=== PATIENT | male | born 1940 | race Caucasian/White ===

== ENCOUNTER 2024-01-16 13:47 | Outpatient (CLI) | payer MEDICARE, OTHER, SELFPAY | END 2024-01-16 13:48 | disposition home or self-care (01) | LOC: WOUND 13:51 | PROVIDERS: PCP Physician Assistant; Visit Provider Surgery | DX: I87.313 Chronic venous hypertension (idiopathic) with ulcer of bilateral lower extremity (principal); I89.0 Lymphedema, not elsewhere classified; L97.824 Non-pressure chronic ulcer of other part of left lower leg with necrosis of bone; L97.818 Non-pressure chronic ulcer of other part of right lower leg with other specified severity; E11.8 Type 2 diabetes mellitus with unspecified complications; E66.01 Morbid (severe) obesity due to excess calories; Z68.41 Body mass index [BMI] 40.0-44.9, adult; Z79.84 Long term (current) use of oral hypoglycemic drugs | CPT/HCPCS: 97597; 97598; G0463 ==

== ENCOUNTER 2024-01-18 15:17 | Outpatient (CLI) | payer MEDICARE, OTHER, SELFPAY | END 2024-01-18 15:18 | disposition home or self-care (01) | LOC: WOUND 15:18 | PROVIDERS: PCP Physician Assistant; Visit Provider Surgery | DX: I87.313 Chronic venous hypertension (idiopathic) with ulcer of bilateral lower extremity (principal); L97.818 Non-pressure chronic ulcer of other part of right lower leg with other specified severity; L97.828 Non-pressure chronic ulcer of other part of left lower leg with other specified severity; I89.0 Lymphedema, not elsewhere classified | CPT/HCPCS: 29581 ==

== ENCOUNTER 2024-01-21 15:38 | Outpatient (CLI) | payer MEDICARE, OTHER, SELFPAY | END 2024-01-21 15:39 | disposition home or self-care (01) | LOC: WOUND 15:38 | PROVIDERS: PCP Physician Assistant; Visit Provider Surgery | DX: I87.313 Chronic venous hypertension (idiopathic) with ulcer of bilateral lower extremity (principal); I89.0 Lymphedema, not elsewhere classified; L97.818 Non-pressure chronic ulcer of other part of right lower leg with other specified severity; L97.828 Non-pressure chronic ulcer of other part of left lower leg with other specified severity | CPT/HCPCS: 29581 ==

== ENCOUNTER 2024-01-24 10:11 | Outpatient (CLI) | payer MEDICARE, OTHER, SELFPAY | END 2024-01-24 10:12 | disposition home or self-care (01) | LOC: WOUND 10:11 | PROVIDERS: PCP Physician Assistant; Visit Provider Nurse Practitioner Family | DX: I87.313 Chronic venous hypertension (idiopathic) with ulcer of bilateral lower extremity (principal); L97.828 Non-pressure chronic ulcer of other part of left lower leg with other specified severity; L97.818 Non-pressure chronic ulcer of other part of right lower leg with other specified severity; I89.0 Lymphedema, not elsewhere classified; E11.8 Type 2 diabetes mellitus with unspecified complications; Z79.84 Long term (current) use of oral hypoglycemic drugs | CPT/HCPCS: G0463 ==

== ENCOUNTER 2024-06-25 14:00 | Outpatient (RCR) | payer MEDICARE, OTHER, SELFPAY | END 2024-10-23 23:59 | disposition home or self-care (01) | PROVIDERS: PCP Physician Assistant; Visit Provider Surgery | DX: I89.0 Lymphedema, not elsewhere classified (principal); Z51.89 Encounter for other specified aftercare | CPT/HCPCS: 97140; 97165; 97535 ==